=== PATIENT | female | born 1980 | race Asian ===

== ENCOUNTER 2017-06-21 21:06 | Observation (INO) | payer OTHER ==
[2014-03-09 21:10] VITALS: BP 132/89
[2017-06-21] MEDS ORDERED: IV RINGERS,LACTATED 1000ML 1,000 ML IV SCH (21:30)
[2017-07-29] MEDS ORDERED: HYDR-971 PO (19:04)
[2017-07-29] MEDS ORDERED: NAPR500T8 PO (19:04)
== END 2017-06-21 22:45 | disposition home or self-care (01) ==
LOC: 3 SO LND 21:06
PROVIDERS: ADMIT Obstetrics & Gynecology; ATTEND Obstetrics & Gynecology
DX: O36.8130 Decreased fetal movements, third trimester, not applicable or unspecified (principal); Z3A.33 33 weeks gestation of pregnancy
CPT/HCPCS: G0378; G0379; 59025

== ENCOUNTER 2017-07-28 02:05 | Inpatient (IN) | payer OTHER ==
[2017-07-28] MEDS ORDERED: OXYTOCIN 30 UNIT/500 ML PREMIX 500 ML IV ×2 (02:14→03:00)
[2017-07-28] MEDS: IV RINGERS,LACTATED 1000ML 1,000 ML IV (02:15)
[2017-07-28] MEDS ORDERED: 0.9 % SODIUM CHLORIDE 10 ML DISP.SYRIN. IV ×2 (02:30→03:00)
[2017-07-28] MEDS ORDERED: IBUPROFEN 600 MG TABLET. PO (02:30)
[2017-07-28] MEDS ORDERED: TERBUTALINE 1 MG/ML VIAL. SQ (02:30)
[2017-07-28] MEDS ORDERED: LIDOCAINE 1% PF 30 ML VIAL. INJ (02:30)
[2017-07-28 02:54] LABS: HEMATOCRIT 33.5 % (36.0-47.0); HEMOGLOBIN 11.3 g/dL (12.0-15.5); MEAN CORPUSCULAR HEMOGLOBIN 31 pg (25-35); MEAN CORPUSCULAR HGB CONC 34 g/dL (31-37); MEAN CORPUSCULAR VOLUME 92 fL (79-100); PLATELET COUNT 228 x10^3/uL (140-400); RED BLOOD COUNT 3.63 x10^6/uL (3.50-5.40); RED CELL DISTRIBUTION WIDTH 12.6 % (11.5-14.5); WHITE BLOOD COUNT 9.7 x10^3/uL (4.0-11.0)
[2017-07-28] MEDS ORDERED: PHENYLEPH/MINERAL OIL/PETROLAT RECTAL OINTMENT 28GM TUBE. RC (03:00)
[2017-07-28] MEDS ORDERED: diphenhydrAMINE HCL 25 MG CAPSULE PO (03:00)
[2017-07-28] MEDS ORDERED: MAGNESIUM HYDROXIDE 2,400 MG/30 ML ORAL.SUSP. PO (03:00)
[2017-07-28] MEDS ORDERED: MMR per PROTOCOL. MC (03:00)
[2017-07-28] MEDS ORDERED: MAG HYDROX/ALUMINUM HYD/SIMETH 30 ML ORAL.SUSP PO (03:00)
[2017-07-28] MEDS ORDERED: HYDROCORTISONE 1% TOPICAL OINTMENT 30GM TUBE. TP (03:00)
[2017-07-28] MEDS ORDERED: SIMETHICONE 80 MG TAB.CHEW PO (03:00)
[2017-07-28] MEDS ORDERED: ZOLPIDEM 5 MG TABLET. PO (03:00)
[2017-07-28] MEDS: OXYTOCIN 30 UNIT/500 ML PREMIX 500 ML IV (03:01)
[2017-07-28] MEDS: fentaNYL PF VIAL 100 MCG/2 ML VIAL IV (03:02)
[2017-07-28] MEDS: IBUPROFEN 800 MG TABLET. PO ×2 (05:01→19:20)
[2017-07-28] MEDS: BENZOCAINE 20% TOPICAL AEROSOL SPRAY 57GM CAN. TP (05:02)
[2017-07-28] MEDS ORDERED: INFLUENZA VAX SCREEN BY RX. MC (06:00)
[2017-07-28] MEDS: ACETAMINOPHEN 325 MG TABLET. PO (09:39)
[2017-07-28] MEDS: FLU VACC QS2017-18 (36MOS+)/PF 0.5 ML SYRINGE. VAX IM (15:25)
[2017-07-28] MEDS: DIPHTH,PERTUSS(ACELL),TET TOX 0.5 ML DISP.SYRIN. VAX IM (15:27)
[2017-07-29] MEDS: IBUPROFEN 800 MG TABLET. PO (05:07)
[2017-07-29 05:36] LABS: ADD MAN DIFF? NO
[2017-07-29 05:49] LABS: BASO % 0 % (0-3); EOS # 0.2 x10^3/uL (0.0-0.7); EOS % 2 % (0-3); HEMATOCRIT 31.3 % (36.0-47.0); HEMOGLOBIN 10.5 g/dL (12.0-15.5); LYMPH # 2.1 x10^3/uL (1.0-4.8); LYMPH % 19 % (24-48); MEAN CORPUSCULAR HEMOGLOBIN 31 pg (25-35); MEAN CORPUSCULAR HGB CONC 34 g/dL (31-37); MEAN CORPUSCULAR VOLUME 92 fL (79-100); MONO # 0.8 x10^3/uL (0.0-1.1); MONO % 7 % (0-9); NEUT # 8.1 x10^3uL (1.8-7.7); NEUT % 72 % (31-73); PLATELET COUNT 234 x10^3/uL (140-400); RED BLOOD COUNT 3.42 x10^6/uL (3.50-5.40); RED CELL DISTRIBUTION WIDTH 12.8 % (11.5-14.5); WHITE BLOOD COUNT 11.2 x10^3/uL (4.0-11.0)
[2017-07-29 06:14] LABS: RPR Non Reactive (Non Reactive)
[2017-07-29] MEDS ORDERED: FERROUS SULFATE 325 MG TABLET. PO (08:00)
[2017-07-29] MEDS: DOCUSATE SODIUM 100 MG CAPSULE. PO (11:09)
[2017-07-29] MEDS: oxyCODONE/APAP 5/325 1 TAB TABLET PO ×2 (11:09→19:40)
== END 2017-07-29 19:45 | disposition home or self-care (01) | DRG 775 ==
LOC: 3 SO LND 02:05 → 3 NORTH 05:00
PROC: 10E0XZZ Delivery of Products of Conception, External Approach (ICD-10-PCS; principal; 2017-07-28)
DX: O80 Encounter for full-term uncomplicated delivery (principal); Z37.0 Single live birth; Z3A.38 38 weeks gestation of pregnancy
CPT/HCPCS: 36415; 85025; 85027; 86593; 86850; 86870; 86900; 86901; 90686; 90715; G0378; J2590; J3010; J7120

== ENCOUNTER 2019-05-01 09:28 | Emergency (ER) | payer MEDICAID, OTHER ==
[~2019-05-01] VITALS: Ht 154.9 cm; Wt 49.9 kg
[~2019-05-01 09:28] MED LIST: HYDR-3164 PO; NAPR500T8 PO
[2019-05-01 09:52] VITALS: BP 146/93
--- NOTE | 2019-05-01 10:31 | RAD ---
Indication:Right knee pain and bruising for one week. TECHNIQUE: 3 views of the right knee COMPARISON:None FINDINGS/ impression: No acute fracture or dislocation. No joint effusion. No arthritic process. Electronically signed by: Hunter Verma DO (05/01/2019 10:29 AM) [facility]
--- NOTE | 2019-05-01 10:36 | PHYS DOC ---
Past Medical History Past Medical History: No Pertinent History, Kidney Stone Past Surgical History: Appendectomy Additional Past Surgical Histo: L ear drum repair Alcohol Use: None Drug Use: None Adult General Chief Complaint Chief Complaint: KNEE INJURY HPI HPI Patient is a 38 year old female who presents to the ER with complaints of bruising and pain to her R knee for the last week. PT denies any recent falls or known injury. She rates the pain a 10/10 on the pain scale, she denies any alleviating factors. The pain increases with movement and palpation. Review of Systems Review of Systems Constitutional: Denies fever or chills [] Eyes: Denies redness, or eye pain [] HENT: Denies nasal congestion or sore throat [] Respiratory: Denies cough or shortness of breath [] Cardiovascular: No additional information not addressed in HPI [] GI: Denies abdominal pain, nausea, vomiting, or diarrhea [] Musculoskeletal: see HPI Integument: Denies rash; see HPI Neurologic: Denies headache, focal weakness or sensory changes [] Complete systems were reviewed and found to be within normal limits, except as documented in this note. Allergies Allergies Allergies Coded Allergies Type Severity Reaction Last Updated Verified No Known Drug Allergies 02/24/14 No Physical Exam Physical Exam Constitutional: Well developed, well nourished, no acute distress, non-toxic appearance. [] HENT: Normocephalic, atraumatic, bilateral external ears normal, nose normal. [] Eyes: PERRLA, EOMI, conjunctiva normal, no discharge. [] Neck: Normal range of motion, no stridor. [] Cardiovascular:Heart rate regular rhythm Lungs & Thorax: Respirations even and unlabored, no retractions, no respiratory distress Skin: Warm, dry, no erythema, no rash; contusion noted to medial right knee and to anterior upper knee [] Extremities: R knee: No cyanosis, no clubbing, ROM intact, no edema, anterior R knee TTP, no deformity, no crepitus, negative anterior and posterior drawer testing. Neurologic: Alert and oriented X 3, no focal deficits noted. [] Psychologic: Affect normal, judgement normal, mood normal. [] Current Patient Data Vital Signs Vital Signs Date Time Temp Pulse Resp B/P (MAP) Pulse Ox O2 Delivery O2 Flow Rate FiO2 05/01/19 09:52 97.7 129 16 146/93 (110) 97 Room Air 97.7 EKG EKG [] Radiology/Procedures Radiology/Procedures PROCEDURE: KNEE RIGHT 3V Indication:Right knee pain and bruising for one week. TECHNIQUE: 3 views of the right knee COMPARISON:None FINDINGS/ impression: No acute fracture or dislocation. No joint effusion. No arthritic process. [] Course & Med Decision Making Course & Med Decision Making Pertinent Labs and Imaging studies reviewed. (See chart for details) [] Dragon Disclaimer Dragon Disclaimer This electronic medical record was generated, in whole or in part, using a voice recognition dictation system. Departure Departure Impression: Primary Impression: Contusion of right knee, initial encounter Disposition: HOME, SELF-CARE Condition: STABLE Referrals: LESA CHING II, MD Patient Instructions: Contusion, [id number], Knee Pain, [id number] Additional Instructions: Fill prescription(s) and use as directed. Recommend application of ice, elevation, and rest of affected extremity. Wear the Girish wrap that was applied as needed for comfort. Follow-up with Dr. Ching if symptoms persist, Return to the ER if your symptoms worsen. Scripts Naproxen (NAPROXEN) 375 Mg Tablet 1 TAB PO BID for 10 Days, #20 TAB 0 Refills Prov: OLGA DARNELL APRN 05/01/19 Splinting Splinting : Location: R knee Pre-Made Type: velcro (girish wrap) Pre-Proc Neuro Vasc Exam: normal Post-Proc Neuro Vasc Exam: normal, unchanged from pre-exam OLGA DARNLEL APRN May 01, 2019 10:36
[2019-05-01] MEDS ORDERED: NAPR-695 PO (10:51)
== END 2019-05-01 11:00 | disposition home or self-care (01) ==
LOC: ER 09:28
DX: S80.01XA Contusion of right knee, initial encounter (principal); Z90.89 Acquired absence of other organs; Z87.442 Personal history of urinary calculi; X58.XXXA Exposure to other specified factors, initial encounter; Y93.89 Activity, other specified; Y92.89 Other specified places as the place of occurrence of the external cause; Y99.8 Other external cause status
CPT/HCPCS: 73562; 99284